=== PATIENT | female | born 1955 | race Caucasian/White ===

== ENCOUNTER 2020-01-02 18:49 | Emergency (ER) | payer OTHER ==
--- NOTE | 2020-01-02 19:24 | ER Document Report ---
ED General - General Chief Complaint: Shortness Of Breath Stated Complaint: ARM NUMBNESS/SHORTNESS OF BREATH Time Seen by Provider: 01/02/20 19:05 Mode of Arrival: Ambulatory Information source: Patient Notes: 01/02/20 19:25 - ED Nursing Note by HIPOLITO CASTRO Num: [id number] : 1955 Patient Age: 64 Pt presents to the ER with reports of one episode of chest tightness that started TURNING SANDER TENDER while she was driving and radiated towards her left arm. Pt reports that she had some shortness of breath at the at time. She denies any active chest pain or shortness of breath. Pt was placed in room 8 and EKG, PIV and labs were obtained promptly. Pt is AO x 4 at this time. She denies any further need at this time. my notes 64-year-old female arrives by POV with chief complaint of shortness of breath left arm numbness and pain in her left axillary area that occurred around 1530 today while [place] with family. She was intermediate home when her symptoms began. Many of her symptoms have resolved but her left axillary pain continues. She reported she had some tightness in her chest that radiating on either side of her bra line. She reports her father from [place] in his 70s but he had high cholesterol and patient denies any such problem. Patient reported her left hand was having some numbness when this occurred. She felt very anxious when this happened. She denies use of any drugs any cigarettes any alcohol use and reports she used to when she was younger but quit this more than 20 years ago. She called a good friend family member at 1700 who advised her to come to the hospital. TRAVEL OUTSIDE OF THE [place] IN LAST 30 DAYS: No - HPI Onset: This afternoon Onset/Duration: Sudden, Persistent, Better Quality of pain: Achy Severity: Mild Pain Level: 1 Associated symptoms: Shortness of breath Exacerbated by: Movement, Deep breathing Relieved by: Denies Similar symptoms previously: No Recently seen / treated by doctor: No - Related Data Allergies/Adverse Reactions: No Known Allergies Allergy (Unverified 01/02/20 21:03) Past Medical History - General Information source: Patient - Social History Smoking Status: Former Smoker Cigarette use (# per day): No Chew tobacco use (# tins/day): No Smoking Education Provided: No Frequency of alcohol use: None Drug Abuse: None Lives with: Family Family History: Reviewed & Not Pertinent, CAD Patient has suicidal ideation: No Patient has homicidal ideation: No Review of Systems - Review of Systems Constitutional: See HPI, Weakness EENT: No symptoms reported Cardiovascular: See HPI, Chest pain Respiratory: See HPI, Short of breath Gastrointestinal: No symptoms reported Genitourinary: No symptoms reported Female Genitourinary: No symptoms reported Musculoskeletal: No symptoms reported, See HPI, Other - Left axillary pain Skin: No symptoms reported Hematologic/Lymphatic: No symptoms reported Neurological/Psychological: No symptoms reported Physical Exam - Vital signs Vitals: Resp Pulse Ox 32 H 98 01/02/20 19:11 01/02/20 19:11 Interpretation: Hypertensive, Tachypneic - General General appearance: Alert, Anxious - HEENT Head: Normocephalic, Atraumatic Eyes: Normal Conjunctiva: Normal Pupils: PERRL Ears: Normal Sinus: Normal Nasal: Normal Mouth/Lips: Normal Mucous membranes: Normal Pharynx: Normal Neck: Normal - Respiratory Respiratory status: Tachypnea Chest status: Nontender Breath sounds: Normal Chest palpation: Normal - Cardiovascular Rhythm: Regular Heart sounds: Normal auscultation Murmur: No - Abdominal Inspection: Normal Distension: No distension Bowel sounds: Normal Tenderness: Nontender Organomegaly: No organomegaly - Rectal Hemorrhoids: Other - deferred - Genitourinary Bimanuel exam: Other - deferred - Back Back: Normal - Extremities General upper extremity: Normal inspection, Nontender, Normal color, Normal ROM, Normal temperature General lower extremity: Normal inspection, Nontender, Normal color, Normal ROM, Normal temperature, Normal weight bearing. No: Joey's sign - Neurological Neuro grossly intact: Yes Cognition: Normal Orientation: AAOx4 Demario Coma Scale Eye Opening: Spontaneous [place] Coma Scale Verbal: Oriented [place] Coma Scale Motor: Obeys Commands Demario Coma Scale Total: 15 Speech: Normal Motor strength normal: LUE, RUE, LLE, RLE Sensory: Normal - Psychological Associated symptoms: Normal affect - Skin Skin Temperature: Warm Skin Moisture: Dry Course - Vital Signs Vital signs: Temp Pulse Resp BP Pulse Ox 98.3 F 17 143/79 H 100 01/02/20 22:00 01/02/20 23:20 01/02/20 23:20 01/02/20 23:20 - Laboratory Result Diagrams: 01/02/20 19:15 01/02/20 19:15 Laboratory results interpreted by me: 01/02/20 19:15 D-Dimer 0.62 H - Diagnostic Test Radiology reviewed: Reports reviewed Radiology results interpreted by me: 01/02/20 23:24 D-dimer was positive but CTA of chest was negative - EKG Interpretation by Me EKG shows normal: Sinus rhythm Rate: Normal Rhythm: NSR Critical Care Note - Critical Care Note Total time excluding time spent on procedures (mins): 90 Comments: I advised patient that she had positive d-dimer with tachypnea and tachycardia and chest pain and anxiety when she presented to us and even though CTA was negative for PE I will begin Xarelto 15 mg twice a day for 1 week until she can follow-up with her doctor this week. Discharge - Discharge Clinical Impression: SOB (shortness of breath), D-dimer, elevated, Anxiety Condition: Good Disposition: HOME, SELF-CARE Additional Instructions: Follow-up with personal doctor this coming week return to ER as needed take Ativan 1 tablet nightly for the next 5 nights and also take twice a day blood thinners. Whether you should continue this will be up to your personal doctor. Prescriptions: Lorazepam [Ativan 0.5 mg Tablet] 0.5 mg PO HSP PRN 5 Days #5 tab PRN Reason: Rivaroxaban [Xarelto 15 mg Tablet] 15 mg PO BID #14 tablet
[2020-01-02 19:28] LABS: ABSOLUTE BASOPHILS # (AUTO) 0.1 10^3/uL (0.0-0.2); ABSOLUTE EOSINOPHILS # (AUTO) 0.1 10^3/uL (0.0-0.6); ABSOLUTE LYMPHOCYTES (AUTO) 2.5 10^3/uL (0.5-4.7); ABSOLUTE MONOCYTES (AUTO) 0.6 10^3/uL (0.1-1.4); BASOPHILS % (AUTO) 0.7 % (0-2); EOSINOPHILS % (AUTO) 0.6 % (0-6); HEMATOCRIT 41.6 % (36.0-47.0); HEMOGLOBIN 14.5 g/dL (12.0-15.5); LYMPHOCYTES % (AUTO) 27.2 % (13-45); MEAN CORPUSCULAR HEMOGLOBIN 31.9 pg (27.0-33.4); MEAN CORPUSCULAR HGB CONC 34.8 g/dL (32.0-36.0); MEAN CORPUSCULAR VOLUME 92 fl (80-97); MONOCYTES % (AUTO) 6.3 % (3-13); PLATELET COUNT 275 10^3/uL (150-450); RED BLOOD COUNT 4.55 10^6/uL (3.72-5.28); RED CELL DISTRIBUTION WIDTH 12.9 % (11.5-14.0); SEGMENTED NEUTROPHILS % (AUTO) 65.2 % (42-78); TOTAL CELLS COUNTED % (AUTO) 100 %; WHITE BLOOD COUNT 9.2 10^3/uL (4.0-10.5)
--- NOTE | 2020-01-02 19:37 | RADIOLOGY REPORT (SQ) ---
EXAM DESCRIPTION: CHEST SINGLE VIEW IMAGES COMPLETED DATE/TIME: 01/02/2020 7:25 pm REASON FOR STUDY: SOB COMPARISON: None. EXAM PARAMETERS: NUMBER OF VIEWS: One view. TECHNIQUE: Single frontal radiographic view of the chest acquired. RADIATION DOSE: NA LIMITATIONS: None. FINDINGS: LUNGS AND PLEURA: No opacities, masses or pneumothorax. No pleural effusion. MEDIASTINUM AND HILAR STRUCTURES: No masses. Contour normal. HEART AND VASCULAR STRUCTURES: Heart normal in size. Normal vasculature. BONES: No acute findings. HARDWARE: None in the chest. OTHER: No other significant finding. IMPRESSION: NO ACUTE RADIOGRAPHIC FINDING IN THE CHEST. TECHNICAL DOCUMENTATION: JOB ID: [id number] 2010 [employer]- All Rights Reserved Reading location - IP/workstation name: [id number]
[2020-01-02 19:45] LABS: ALBUMIN 4.5 g/dL (3.5-5.0); ALKALINE PHOSPHATASE 81 U/L (38-126); ANION GAP 8 (5-19); ASPARTATE AMINO TRANSFERASE 29 U/L (14-36); BILIRUBIN,TOTAL 0.4 mg/dL (0.2-1.3); BLOOD UREA NITROGEN 14 mg/dL (7-20); CALCIUM 9.9 mg/dL (8.4-10.2); CARBON DIOXIDE 26 mmol/L (22-30); CHLORIDE 104 mmol/L (98-107); GLUCOSE 105 mg/dL (75-110); POTASSIUM 3.9 mmol/L (3.6-5.0); TOTAL PROTEIN 7.6 g/dL (6.3-8.2)
[2020-01-02] MEDS ORDERED: LORAZEPAM INJ 2 MG/1 ML VIAL IV ONE (20:35)
[2020-01-02 20:56] LABS: APPEARANCE,URINE CLEAR; BILIRUBIN,URINE NEGATIVE (NEGATIVE); COLOR,URINE STRAW; GLUCOSE, URINE NEGATIVE (NEGATIVE); KETONES,URINE NEGATIVE (NEGATIVE); LEUKOCYTE ESTERASE,URINE NEGATIVE (NEGATIVE); NITRITE,URINE NEGATIVE (NEGATIVE); PROTEIN,URINE NEGATIVE (NEGATIVE); URINE SPECIFIC GRAVITY 1.005; UROBILINOGEN,URINE NEGATIVE mg/dL (<2.0)
--- NOTE | 2020-01-02 21:02 | EKG REPORT ---
SEVERITY:- NORMAL ECG - SINUS RHYTHM : Confirmed by: Mike Cabrera MD 02-Jan-2020 21:01:53
--- NOTE | 2020-01-02 21:55 | RADIOLOGY REPORT (SQ) ---
CT HEAD WITHOUT IV CONTRAST HISTORY: Left arm numbness. COMPARISON: None. TECHNIQUE: CT scan of the brain was performed without IV contrast. This exam was performed according to our departmental dose-optimization program, which includes automated exposure control, adjustment of the mA and/or kV according to patient size and/or use of iterative reconstruction technique. FINDINGS: The ventricles, cisterns, and sulci are age-appropriate. No evidence of acute infarction, intracranial hemorrhage, extra-axial fluid collection, or midline shift. No air-fluid levels are seen in the paranasal sinuses to suggest acute sinusitis. No depressed skull fracture. IMPRESSION: No acute intracranial findings are seen. Please note that MRI is more sensitive for the evaluation of early infarction, and may be performed if there is high clinical concern.
--- NOTE | 2020-01-02 21:59 | RADIOLOGY REPORT (SQ) ---
CT CHEST ANGIOGRAPHY WITHOUT THEN WITH IV CONTRAST HISTORY: Shortness of breath. COMPARISON: None. TECHNIQUE: CT angiogram of the chest with IV contrast. 3-D MIP images were obtained in coronal and sagittal reconstructions. This exam was performed according to our departmental dose-optimization program, which includes automated exposure control, adjustment of the mA and/or kV according to patient size and/or use of iterative reconstruction technique. FINDINGS: No filling defects are identified in the pulmonary trunk, main left and right pulmonary arteries, or the segmental branches. The thyroid gland is normal. No mediastinal or hilar adenopathy. The heart size is normal without pericardial effusion. The thoracic aorta is normal caliber. No consolidation, pleural effusion, or pneumothorax is identified. The visualized upper abdomen demonstrates gallstones but no acute findings. No acute osseous findings are seen. IMPRESSION: No acute pulmonary embolism.
[2020-01-02] MEDS ORDERED: RIVAROXABAN 15 MG TABLET PO ONE (23:30)
[2020-01-03 00:26] LABS: INTERNATIONAL RATION (INR) 1.11; PROTHROMBIN TIME 14.4 SEC (11.4-15.4)
[2020-01-03 00:27] LABS: PARTIAL THROMBOPLASTIN TIME 33.9 SEC (23.5-35.8)
[2020-01-03 00:38] VITALS: BP 138/68
[2020-01-03] MEDS ORDERED: RIVAROXABAN 15 MG TABLET ONE (00:44)
== END 2020-01-03 01:03 | disposition home or self-care (01) ==
LOC: ER 18:49
DX: F41.9 Anxiety disorder, unspecified (principal); R79.89 Other specified abnormal findings of blood chemistry; R07.89 Other chest pain; R00.0 Tachycardia, unspecified; R06.02 Shortness of breath; R20.0 Anesthesia of skin; M79.622 Pain in left upper arm; R53.1 Weakness; I10 Essential (primary) hypertension; Z87.891 Personal history of nicotine dependence; Z82.49 Family history of ischemic heart disease and other diseases of the circulatory system
CPT/HCPCS: 93005; 99291; 99292; 96374; 36415; 84443; 85025; 85610; 85730; 80053; 81001; 85379; 71045; 70450; 71275; 93010; J2060

== ENCOUNTER 2020-01-09 09:48 | Emergency (ER) | payer OTHER ==
[2020-01-09] MEDS ORDERED: ASPIRIN 81 MG TABLET, CHEWABLE PO ONE (10:13)
--- NOTE | 2020-01-09 10:13 | ER Document Report ---
ED Medical Screen (RME) - General Chief Complaint: Numbness of Arm Stated Complaint: LEFT ARM NUMBNESS Time Seen by Provider: 01/09/20 10:12 Mode of Arrival: Ambulatory Information source: Patient Notes: 64-year-old female presents to ED for complaint of chest pain with numbness down the left arm. She states she thinks that all a panic attack and anxiety but she did have pain and numbness down the left arm. She states the chest pain and the numbness are all gone at this time. She is alert oriented respirations regular nonlabored. She states she does have panic attacks. She also has a history of high blood pressure and a hip replacement. She does not smoke drink or use any drugs. She does live alone. I have greeted and performed a rapid initial assessment of this patient. A c omprehensive ED assessment and evaluation of the patient, analysis of test results and completion of medical decision making process will be conducted by an additional ED providers. TRAVEL OUTSIDE OF THE [place] IN LAST 30 DAYS: No - Related Data Allergies/Adverse Reactions: No Known Allergies Allergy (Unverified 01/02/20 21:03) Physical Exam - Vital signs Vitals: Temp Pulse Resp BP Pulse Ox 98.1 F 72 18 173/83 H 99 01/09/20 10:07 01/09/20 10:07 01/09/20 10:07 01/09/20 10:07 01/09/20 10:07 Course - Vital Signs Vital signs: Temp Pulse Resp BP Pulse Ox 98.1 F 72 18 173/83 H 99 01/09/20 10:07 01/09/20 10:07 01/09/20 10:07 01/09/20 10:07 01/09/20 10:07
[2020-01-09 10:49] LABS: ABSOLUTE LYMPHOCYTES (AUTO) 1.2 10^3/uL (0.5-4.7); ABSOLUTE MONOCYTES (AUTO) 0.3 10^3/uL (0.1-1.4); ABSOLUTE NEUT (AUTO) 3.6 10^3/uL (1.7-8.2); BASOPHILS % (AUTO) 0.3 % (0-2); EOSINOPHILS % (AUTO) 0.8 % (0-6); HEMATOCRIT 40.4 % (36.0-47.0); HEMOGLOBIN 14.1 g/dL (12.0-15.5); LYMPHOCYTES % (AUTO) 23.3 % (13-45); MEAN CORPUSCULAR VOLUME 92 fl (80-97); PLATELET COUNT 238 10^3/uL (150-450); RED BLOOD COUNT 4.41 10^6/uL (3.72-5.28); RED CELL DISTRIBUTION WIDTH 12.8 % (11.5-14.0); SEGMENTED NEUTROPHILS % (AUTO) 69.6 % (42-78); TOTAL CELLS COUNTED % (AUTO) 100 %; WHITE BLOOD COUNT 5.1 10^3/uL (4.0-10.5)
[2020-01-09 11:12] LABS: ALBUMIN 4.1 g/dL (3.5-5.0); ALKALINE PHOSPHATASE 75 U/L (38-126); ANION GAP 5 (5-19); ASPARTATE AMINO TRANSFERASE 26 U/L (14-36); BILIRUBIN,TOTAL 0.7 mg/dL (0.2-1.3); BLOOD UREA NITROGEN 7 mg/dL (7-20); CALCIUM 9.4 mg/dL (8.4-10.2); CARBON DIOXIDE 29 mmol/L (22-30); CHLORIDE 105 mmol/L (98-107); GLUCOSE 101 mg/dL (75-110); POTASSIUM 3.8 mmol/L (3.6-5.0)
--- NOTE | 2020-01-09 11:51 | RADIOLOGY REPORT (SQ) ---
EXAM DESCRIPTION: CHEST 2 VIEWS IMAGES COMPLETED DATE/TIME: 01/09/2020 10:32 am REASON FOR STUDY: chest pain COMPARISON: 01/02/2020 EXAM PARAMETERS: NUMBER OF VIEWS: two views TECHNIQUE: Digital Frontal and Lateral radiographic views of the chest acquired. RADIATION DOSE: NA LIMITATIONS: none FINDINGS: LUNGS AND PLEURA: No opacities, masses or pneumothorax. No pleural effusion. MEDIASTINUM AND HILAR STRUCTURES: No masses or contour abnormalities. HEART AND VASCULAR STRUCTURES: Heart normal size. No evidence for failure. BONES: No acute findings. HARDWARE: None in the chest. OTHER: No other significant finding. IMPRESSION: NO ACUTE RADIOGRAPHIC FINDING IN THE CHEST. TECHNICAL DOCUMENTATION: JOB ID: [id number] 2010 [employer]- All Rights Reserved Reading location - IP/workstation name: [email or web address]
--- NOTE | 2020-01-09 13:20 | EKG REPORT ---
SEVERITY:- NORMAL ECG - SINUS BRADYCARDIA : Confirmed by: Bipin Dunne MD 09-Jan-2020 13:20:00
--- NOTE | 2020-01-09 13:46 | ER Document Report ---
Entered by BRANDI NOEL SCRIBE 01/09/20 1324 Acting as scribe for:CAR DAVIS MD ED General - General Chief Complaint: Chest Pain Stated Complaint: LEFT ARM NUMBNESS Time Seen by Provider: 01/09/20 10:12 Mode of Arrival: Ambulatory Information source: Patient Notes: This 64 year old female patient presents to the emergency department today with complaints of left arm numbness which she first noticed this morning upon awakening. Patient describes the numbness as "from her shoulder to her hand", mentioning that her entire hand and fingers were numb. Patient states that this numb sensation took around 2-3 hours to subside which is why she was concerned. There was no chest pain associated with the episode today. Patient was seen here for a similar episode about a week ago (01/02/2020) but that time the numbness lasted for 5-6 hours and there was additionally chest pain reported with that episode. She was driving when that episode began. On that v isit the patient had a negative CTA chest, and was discharged home on Xarelto for a slightly elevated d-dimer. TRAVEL OUTSIDE OF THE [place] IN LAST 30 DAYS: No - Related Data Allergies/Adverse Reactions: No Known Allergies Allergy (Unverified 01/02/20 21:03) Home Medications: Ativan Past Medical History - General Information source: Patient - Social History Smoking Status: Never Smoker Cigarette use (# per day): No Chew tobacco use (# tins/day): No Frequency of alcohol use: None Drug Abuse: None Lives with: Family Family History: Reviewed & Not Pertinent, CAD - Medical History Medical History: Negative Past Surgical History: Reports: Hx Orthopedic Surgery - total right hip rep lacement, Hx Tonsillectomy Review of Systems - Review of Systems Constitutional: No symptoms reported EENT: No symptoms reported Cardiovascular: No symptoms reported Respiratory: No symptoms reported Gastrointestinal: No symptoms reported Genitourinary: No symptoms reported Female Genitourinary: No symptoms reported Musculoskeletal: No symptoms reported Skin: No symptoms reported Hematologic/Lymphatic: No symptoms reported Neurological/Psychological: See HPI, Numbness - left arm -: Yes All other systems reviewed and negative Physical Exam - Vital signs Vitals: Temp Pulse Resp BP Pulse Ox 98.1 F 72 18 173/83 H 99 01/09/20 10:07 01/09/20 10:07 01/09/20 10:07 01/09/20 10:07 01/09/20 10:07 - Notes Notes: Physical Exam: General: Alert, appears well. HEENT: Normocephalic. Atraumatic. PERRL. Extraocular movements intact. Oropharynx clear. Neck: Supple. Non-tender. Respiratory: No respiratory distress. Clear and equal breath sounds bilaterally. Cardiovascular: Regular rate and rhythm. Abdominal: Normal Inspection. Non-tender. No distension. Normal Bowel Sounds. Back: No gross abnormalities. Extremities: Moves all four extremities. Upper extremities: Normal inspection. Normal ROM. Lower extremities: Normal inspection. No edema. Normal ROM. Neurological: Normal cognition. AAOx4. Normal speech. Psychological: Normal affect. Normal Mood. Skin: Warm. Dry. Normal color. Course - Re-evaluation Re-evalutation: 01/09/20 13:47 A troponin was added to her lab work due to her complaints of chest pain and arm numbness, a cholesterol was added due to the family history of her father having only cholesterol is a risk factor and dying from a heart attack. The patient states she needs to be at a in [place] late this afternoon and cannot wait for the results. I have a very low index suspicion for this being coronary artery disease, and think that it would be okay for her to be discharged. I will notify her if any of the lab work comes back abnormal after she is gone. She will be advised to follow-up with cardiology and with neurology to further evaluate her symptoms. - Vital Signs Vital signs: Temp Pulse Resp BP Pulse Ox 97.9 F 63 16 157/82 H 99 01/09/20 14:05 01/09/20 14:05 01/09/20 14:05 01/09/20 14:05 01/09/20 14:05 - Laboratory Result Diagrams: 01/09/20 10:27 01/09/20 10:27 Laboratory results interpreted by me: 01/09/20 10:27 Cholesterol 213.14 H - Diagnostic Test Radiology reviewed: Image reviewed, Reports reviewed - Chest x-ray is unremarkable - EKG Interpretation by Me EKG shows normal: Sinus rhythm, [place], Intervals, QRS Complexes, ST-T Waves Rate: Normal - 58 Rhythm: NSR When compared to previous EKG there are: No significant change Discharge - Discharge Clinical Impression: Left upper extremity numbness High blood pressure Qualifiers: Hypertension type: unspecified Qualified Code(s): I10 - Essential (primary) hypertension Condition: Stable Disposition: HOME, SELF-CARE Additional Instructions: Arm Numbness: There is no clear explanation for the symptoms you had today of the numbness in your left arm. You did have similar discomfort along with chest discomfort and shortness of breath last week. Your evaluations on both visits did not show evidence of coronary artery disease, or any other explanation for your symptoms. High Blood Pressure: When your blood pressure was taken today it was elevated. Pre-hypertension/Hypertension: The patient has been informed that they may have pre-hypertension or Hypertension based on a blood pressure reading in the emergency department. I recommend that the patient call the primary care provider listed on their discharge instructions or a physician of their choice this week to arrange follow up for further evaluation of possible pre- hypertension or Hypertension. Sometimes, stress or illness causes a temporary elevation of your blood pressure. We suggest that you get your blood pressure measured three more times during the next few days to see if this is more than a temporary abnormality. If your blood pressure is greater than 150/90 on each occasion, you must have treatment. Some simple things you can do to help are: If you have blood pressure medicine but aren't using it regularly, start taking it again. Get some aerobic exercise for at least 20 minutes on a daily basis. (See your doctor before beginning a new exercise program.) Eat a low-fat diet. Lose excess weight. Avoid salty foods and avoid adding salt to any of the foods you eat. Avoid diet pills, decongestants, "energizing" herbs, and other medicines that elevate blood pressure. If left untreated, hypertension greatly enhances your risk for developing heart disease and strokes. Please don't ignore this problem. You should follow-up with a local neurologist and a local fund controller to further evaluate your symptoms. Follow-up with a local primary care provider to manage your blood pressure if it continues to remain elevated. RETURN TO THE EMERGENCY ROOM IF ANY NEW OR WORSENING SYMPTOMS. I personally performed the services described in the documentation, reviewed and edited the documentation which was dictated to the scribe in my presence, and it accurately records my words and actions.
[2020-01-09 14:06] VITALS: BP 157/82
== END 2020-01-09 14:06 | disposition home or self-care (01) ==
LOC: ER 09:48
DX: R20.0 Anesthesia of skin (principal); I10 Essential (primary) hypertension; Z79.899 Other long term (current) drug therapy; Z82.49 Family history of ischemic heart disease and other diseases of the circulatory system; Z83.49 Family history of other endocrine, nutritional and metabolic diseases
CPT/HCPCS: 36415; 71046; 80053; 82465; 82550; 83735; 84443; 84484; 85025; 93005; 93010; 99284

== ENCOUNTER → 2020-06-01 | Outpatient (CLI) | payer OTHER ==
--- NOTE | 2020-06-01 12:54 | WOMENS IMAGING REPORT ---
EXAM DESCRIPTION: 3D SCREENING MAMMO BILAT IMAGES COMPLETED DATE/TIME: 06/01/2020 10:55 am REASON FOR STUDY: Z12.31 ENCOUNTER FOR SCREENING MAMMOGRAM FOR MALIGNANT NEOPLASM OF BREAST Z12.31 ENCNTR SCREEN MAMMOGRAM FOR MALIGNANT NEOPLASM OF [place] COMPARISON: 2011 and subsequent. EXAM PARAMETERS: Views: Standard craniocaudal and mediolateral oblique views of each breast recorded using digital acquisition and breast tomosynthesis. Read with the assistance of CAD. .[facility] - [employer]ist Version 9.2 LIMITATIONS: None. FINDINGS: No suspicious masses, suspicious calcifications or architectural distortion. No areas of c oncern. IMPRESSION: NEGATIVE MAMMOGRAM. BIRADS 1. BREAST DENSITY: b. There are scattered areas of fibroglandular density. BIRAD: ASSESSMENT: 1 NEGATIVE RECOMMENDATION: ROUTINE SCREENING COMMENT: The patient has been notified of the results by letter per MQSA requirements. Additional no tification policies are in place for contacting patient with suspicious or incomplete findings. Quality ID #225: The [employer] recommends an annual screening mammogram for women aged 40 years or over. This facility utilizes a reminder system to ensure that all patients receive reminder letters, and/or direct phone calls for appointments. This includes reminders for routine scr eening mammograms, diagnostic mammograms, or other Breast Imaging Interventions when appropriate. Th is patient will be placed in the appropriate reminder system. TECHNICAL DOCUMENTATION: FINDING NUMBER: (1) ASSESSMENT: (1) JOB ID: [id number] 2010 [employer]- All Rights Reserved Reading location - IP/workstation name: [email or web address]
== END ==
LOC: WI 10:20
PROVIDERS: ATTEND Nurse Practitioner Family
DX: Z12.31 Encounter for screening mammogram for malignant neoplasm of breast (principal)
CPT/HCPCS: 77063; 77067